=== PATIENT | female | born 1975 | race Caucasian/White ===

== ENCOUNTER 2018-03-31 10:18 | Day surgery (SDC) | payer BC ==
[2018-03-29 11:10] VITALS: BMI 42.0
[2018-03-31] MEDS ORDERED: methylPREDNISolone ACET (DEPO) 40 MG/1 ML VIAL ONE (11:01)
[2018-03-31] MEDS ORDERED: BUPIVACAINE HCL/PF 2.5 MG/ML - 30 ML VIAL IJ ONE (11:01)
[2018-03-31] MEDS ORDERED: MIDAZOLAM HCL 2 MG/2 ML SINGLE DOSE VIAL ONE (11:03)
[2018-03-31] MEDS ORDERED: DEXAMETHASONE SOD PHOSPHATE 4 MG/1 ML VIAL ONE (11:26)
[2018-03-31] MEDS ORDERED: ONDANSETRON 4 MG/2 ML VIAL ONE (11:26)
[2018-03-31] MEDS ORDERED: ceFAZolin SODIUM 1 GM VIAL ONE (11:26)
[2018-03-31] MEDS ORDERED: PROPOFOL 20 ML ONE ×2 (11:37→12:05)
[2018-03-31] MEDS ORDERED: BUPIVACAINE HCL/PF 0.25% (2.5MG/ML) 10 ML VIAL IJ ONE (12:20)
[2018-03-31] MEDS ORDERED: methylPREDNISolone ACET (DEPO) 40 MG/1 ML VIAL NR ONE (12:20)
--- NOTE | 2018-03-31 12:46 | OP ---
Operative Note - Note: Operative Date: 03/31/18 Pre-Operative Diagnosis: Left knee mal-alignment & DJD Operation: Surgical arthroscopy left knee. Irrigation & debridement Findings: Grade III chondromalacia lateral patellar facet, medial femoral condyle & medial tibial plateau. Post-Operative Diagnosis: Same as Pre-op Surgeon: Zaid Schulz Depositing Machine Operator: Jeff Schulz Anesthesiologist/QUALITY CONTROL AUDITOR: Ita Silvestre Anesthesia: Spinal Estimated Blood Loss (mls): 0 Fluid Volume Replaced (mls): 750 Operative Report Dictated: Yes
[2018-03-31] MEDS ORDERED: ONDANSETRON 4 MG/2 ML VIAL IVPUSH PRN (13:54)
[2018-03-31] MEDS ORDERED: oxyCODONE HCL 5 MG TABLET PO PRN (13:54)
[2018-03-31] MEDS ORDERED: diphenhydrAMINE HCL 25 MG CAPSULE (FP) PO ONE (13:58)
[2018-03-31 15:06] VITALS: BP 118/69; PULSE 75; TEMP 98
[2018-03-31] MEDS ORDERED: LACTATED RINGERS SOLUTION 1,000 ML IV SCH (17:00)
[2018-03-31] MEDS ORDERED: diphenhydrAMINE HCL 12.5 MG/5 ML UNIT-DOSE CUPS PO ONE (17:00)
--- NOTE | 2018-04-12 19:20 | OP ---
DATE OF OPERATION: 03/31/2018 SURGEON: Zaid Schulz M.D. COSMETIC SALES ADVISOR: Jeff Schulz M.D. PREOPERATIVE DIAGNOSIS: Medial compartment osteoarthritis left knee. POSTOPERATIVE DIAGNOSIS: Tricompartment osteoarthritis left knee. OPERATION PERFORMED: Diagnostic arthroscopy for planning of a valgus osteotomy. ANESTHESIA: The anesthesia was spinal sedation as well as conscious sedation. ANTIBIOTICS GIVEN: 2 g Kefzol. Standard free drape applied. Timeout was called. Imaging was available for intraoperative evaluation. Anterolateral portal was utilized. This gave easy access to the entire knee and visualization of the entire knee encountered the retropatellar osteoarthritis, medial compartment arthritis fairly advanced, at a [place] level of 3 changes noted, and at a [place] level of 2 changes noted on the lateral femoral condyle as well as tibial plateau. This obviated the decision to go ahead with a valgus realignment osteotomy and total knee arthroplasty would be far better suited. The wounds were thoroughly lavaged. The ports were closed with 3-0 nylon. No complications. MD JOSE ALFREDO Yadav/[id number] MTDD
== END 2018-03-31 16:00 | disposition home or self-care (01) ==
LOC: FASU 10:18
PROVIDERS: ATTEND Orthopaedic Surgery Orthopaedic Surgery of the Spine
PROC: 0SJD4ZZ Inspection of Left Knee Joint, Percutaneous Endoscopic Approach (ICD-10-PCS; principal; 2018-03-31 12:02)
DX: M17.12 Unilateral primary osteoarthritis, left knee (principal)
CPT/HCPCS: 84703